=== PATIENT | male | born 2000 | race Caucasian/White ===

== ENCOUNTER 2024-02-11 04:39 | Emergency (ER) | payer SELFPAY ==
[2024-02-11] VITALS (32 sets, daily range): BP systolic 114–129; BP diastolic 69–85; PULSE 75–99; RESP 13–24; TEMP 36.9; O2SAT 77–100; BMI 23.6
[2024-02-11 05:30] LABS: Basophils % 0.3 %; Eosinophils % 0.2 %; Hematocrit 47.4 % (37-53); Lymphocytes # 2.3 10^3/uL (0.8-4.8); Lymphocytes % 14.4 %; Mean Corpuscular HGB Conc 33.1 g/dL (30-55); Mean Corpuscular Hemoglobin 29.8 pg (27-33); Mean Corpuscular Volume 89.9 fl (82-101); Mean Platelet Volume 9.9 fL (7.4-10.4); Monocytes # 1.7 10^3/uL (0.2-0.9); Monocytes % 10.8 %; Neutrophils # 11.72 10^3/uL (1.8-7.7); Nucleated Red Blood Cells % 0 %; Platelet Count 302 10^3/cmm (157-399); Red Blood Count 5.27 10^6/uL (3.85-5.65); Red Cell Distribution Width 12.7 % (12.1-15.1); White Blood Count 15.81 10^3/uL (3.29-11.43)
--- NOTE | 2024-02-11 05:32 | ED_ITS ---
HPI - Abdominal Pain 2 General: Chief Complaint: Abdominal Pain Stated Complaint: ABD Pain Time Seen by Provider: 02/11/24 05:21 History of Present Illness: 23-year-[facility] complaint of suprapubic pain began yesterday. Denies any dysuria urgency or frequency no previous history of abdominal surgeries. Symptoms began last night. Low-grade fever no vomiting no hematochezia or melena. Patient has had some loose stools with intermittent nausea as well. Associated Symptoms: Denies chills, dysuria and fever(s) Related Data Previous Rx's Medication Instructions Recorded ciprofloxacin HCl 500 mg tablet 500 mg PO BID #14 tabs 02/11/24 (Cipro) hydrocodone 5 mg-acetaminophen 325 1 tab PO Q6H PRN pain #10 tabs 02/11/24 mg tablet metronidazole 500 mg tablet 500 mg PO BID 7 days #14 tabs 02/11/24 promethazine 25 mg tablet 25 mg PO Q6H PRN nausea and 02/11/24 vomiting #20 tabs Allergies Allergy/AdvReac Type Severity Reaction Status Date / Time No Known Allergies Allergy Verified 02/11/24 04:55 Review of Systems 2 Const: Denies: fever(s) or chills Card: Denies: chest pain Resp: Denies: dyspnea GI: Denies: abdominal pain : Denies: dysuria, urinary frequency or urinary urgency Musc: Denies: neck pain or back pain Skin/Breast: Denies: rash Physical Exam 2 Const: COMMON NORMALS: no acute distress GENERAL APPEARANCE: cooperative and comfortable ORIENTATION/CONSCIOUSNESS: Yes awake, Yes oriented to person, Yes oriented to place and Yes oriented to time HENMT: COMMON NORMALS: normocephalic, atraumatic and hearing grossly normal bilaterally HEAD & SCALP: normocephalic and atraumatic Resp: COMMON NORMALS: normal respiratory effort, No retractions, No use of accessory muscles and clear to auscultation bilaterally AUSCULTATION: clear to auscultation bilaterally Cardio: COMMON NORMALS: regular rate, regular rhythm and No murmurs present (Cardio) RATE: regular rate RHYTHM: regular rhythm GI: COMMON NORMALS: No hepatosplenomegaly present AUSCULTATION: Yes normoactive bowel sounds PALPATION: Yes Tenderness to palpation present (GI) (Mild suprapubic tenderness at the midline), No Guarding due to palpation present (GI) and Yes No hepatosplenomegaly present Extremity: COMMON NORMALS: normal to inspection, capillary refill normal, no clubbing, cyanosis or edema, no calf tenderness and no pedal edema Neuro: SENSORIUM/ORIENTATION: Yes oriented to person, Yes oriented to place and Yes oriented to time Skin: COMMON NORMALS: no rashes or lesions noted GENERAL SKIN EXAM: no rashes or lesions noted Course 2 Vital Signs: Vital signs: Vital Signs Temperature 98.5 F 02/11/24 04:52 Pulse Rate 87 02/11/24 06:45 Respiratory Rate 13 02/11/24 06:45 Blood Pressure 118/78 02/11/24 06:45 Pulse Oximetry 100 02/11/24 06:40 Oxygen Delivery Me thod Room Air 02/11/24 04:52 MDM - Abdominal Pain Medical Decision Making CT shows normal appendix but there is a area of inflammation in the sigmoid associated with acute diverticulitis. Will treat for diverticulitis his appendix appeared normal. Started on Cipro and Flagyl discharged home with promethazine and hydrocodone to use as needed for pain follow-up with his primary care doctor to further evaluate if not improving follow-up within a week otherwise should follow-up in about 3 weeks and at some point given his age and the findings on the CT today should consider colonoscopy. Differential Diagnosis Likely abdominal pain, acute appendicitis, calculus of kidney, constipation, diverticulitis, pancreatitis and small bowel obstruction Medical Records I reviewed the patient's medical records. Lab Data I reviewed the patient's lab results. 02/11/24 05:25 02/11/24 05:25 Labs/Radiology: Radiology Impressions Abdomen/Pelvis CT 02/11/24 05:38 IMPRESSION: 1. Findings likely representing diverticulitis involving the mid sigmoid colon, see above details. 2. Very small amount of peritoneal fluid in the posterior lower pelvis. 3. No free air or significant bowel distention. 4. Possible thickened mucosa/wall in the distal stomach, see above discussion. 5. Normal appendix. 6. Possible mild urinary bladder wall thickening, see above. 7. Other findings discussed above. Laboratory Results WBC 15.81 10^3/uL (3.29-11.43) H 02/11/24 05:25 RBC 5.27 10^6/uL (3.85-5.65) 02/11/24 05:25 Hgb 15.70 g/dL (11.27-16.99) 02/11/24 05:25 Hct 47.4 % (37-53) 02/11/24 05:25 MCV 89.9 fl (82-101) 02/11/24 05:25 MCH 29.8 pg (27-33) 02/11/24 05:25 MCHC 33.1 g/dL (30-55) 02/11/24 05:25 RDW 12.7 % (12.1-15.1) 02/11/24 05:25 Plt Count 302 10^3/cmm (157-399) 02/11/24 05:25 MPV 9.9 fL (7.4-10.4) 02/11/24 05:25 Neut % (Auto) 74.0 % 02/11/24 05:25 Lymph % (Auto) 14.4 % 02/11/24 05:25 Mobile % (Auto) 10.8 % 02/11/24 05:25 Eos % (Auto) 0.2 % 02/11/24 05:25 Baso % (Auto) 0.3 % 02/11/24 05:25 Neut # (Auto) 11.72 10^3/uL (1.8-7.7) H 02/11/24 05:25 Lymph # (Auto) 2.3 10^3/uL (0.8-4.8) 02/11/24 05:25 Mobile # (Auto) 1.7 10^3/uL (0.2-0.9) H 02/11/24 05:25 Eos # (Auto) 0.0 10^3/uL (0.0-0.8) 02/11/24 05:25 Baso # (Auto) 0.0 10^3/uL (0.0-0.1) 02/11/24 05:25 Nucleated RBC % (auto) 0 % 02/11/24 05:25 Nucleated RBCs # 0.0 /100WBC 02/11/24 05:25 Sodium 136 mmol/L (136-145) 02/11/24 05:25 Potassium 4.0 mmol/L (3.5-5.1) 02/11/24 05:25 Chloride 101 mmol/L (98-107) 02/11/24 05:25 Carbon Dioxide 26 mmol/L (22-29) 02/11/24 05:25 Anion Gap 13.0 (5-19) 02/11/24 05:25 BUN 10 mg/dL (6-20) 02/11/24 05:25 Creatinine 1.0 mg/dL (0.7-1.2) 02/11/24 05:25 GFR Calculation 92.6 mL/min (90-130) 02/11/24 05:25 Glucose 99 mg/dL (65-115) 02/11/24 05:25 Calculated Osmolality 281 mOsm/kg (285-295) L 02/11/24 05:25 Calcium 9.2 mg/dL (8.5-10.5) 02/11/24 05:25 Total Bilirubin 0.9 mg/dL (0.15-1.2) 02/11/24 05:25 AST 14 U/L (0-40) 02/11/24 05:25 ALT 13 U/L (0-41) 02/11/24 05:25 Alkaline Phosphatase 76 U/L (40-130) 02/11/24 05:25 C-Reactive Protein 71.3 mg/L (0.0-4.9) H 02/11/24 05:25 Total Protein 7.3 g/dL (6.6-8.7) 02/11/24 05:25 Albumin 4.4 g/dL (3.5-5.2) 02/11/24 05:25 Globulin 2.9 g/dL (1.3-4.6) 02/11/24 05:25 Lipase 16 U/L (13-60) 02/11/24 05:25 Urine Color Yellow (Yellow) 02/11/24 05:50 Urine Appearance Clear (CLEAR) 02/11/24 05:50 Urine pH 5.5 (5-7) 02/11/24 05:50 Ur Specific [place] 1.027 (1.005-1.030) 02/11/24 05:50 Urine Protein Negative (Negative) 02/11/24 05:50 Urine Glucose (UA) Negative (Normal) 02/11/24 05:50 Urine Ketones 1+ (Negative) H 02/11/24 05:50 Urine Blood Negative (Negative) 02/11/24 05:50 Urine Nitrate Negative (Negative) 02/11/24 05:50 Urine Bilirubin Negative (Negative) 02/11/24 05:50 Urine Urobilinogen 1.0 mg/dL (Negative) 02/11/24 05:50 Ur Leukocyte Esterase Negative (Negative) 02/11/24 05:50 Urine RBC 0-2 /hpf (0-2) 02/11/24 05:50 Urine WBC 0-5 /hpf (0-5) 02/11/24 05:50 Ur Squamous Epith Cells 0-5 /hpf (0-5) 02/11/24 05:50 Amorphous Sediment Not Reportable 02/11/24 05:50 Urine Bacteria None seen /hpf (NONE) 02/11/24 05:50 Hyaline Casts 2.46 /lpf 02/11/24 05:50 All radiology interpretation(s) finalized by discharge Discharge Plan Discharge Patient Disposition: Home Clinical Impression: Diverticulitis Condition: Stable Prescriptions: New hydrocodone-acetaminophen 5-325 mg tablet 1 tab PO Q6H PRN (Reason: pain) Qty: 10 0RF promethazine 25 mg tablet 25 mg PO Q6H PRN (Reason: nausea and vomiting) Qty: 20 0RF Cipro 500 mg tablet 500 mg PO BID Qty: 14 0RF metronidazole 500 mg tablet 500 mg PO BID 7 Days Qty: 14 0RF Discharge Orders: Discharge ED (Routine); Ordered 02/11/24 Ordered By: Korey Oh Patient Instructions: Diverticulitis (ED), Opioid Safety, Pain Management Activity Restrictions/Additional Instructions: Thank you for choosing [facility] for your healthcare needs today. It is very important that you follow up as instructed or that you return to the Emergency Department should you have concerns or if your condition changes or worsens in any way. You were seen today for abdominal pain. CT showed diverticulitis she did have a mildly elevated white count your appendix appeared normal. Recommend that you start on ciprofloxacin 1 pill twice a day and metronidazole 1 pill twice a day both for 7 days to treat the diverticulitis. Additionally you are given medicines for pain and nausea to use as needed. Also recommend clear liquid diet for the next 24 to 48 hours and advance as tolerated Coding Level of Care Code ED Clip Bolter And Wrapper for Suzy Kumar
--- NOTE | 2024-02-11 05:38 | CTR_ITS ---
PROCEDURE INFORMATION: Exam: CT Abdomen And Pelvis With Contrast Exam date and time: 02/11/2024 6:10 AM Age: 23 years old Clinical indication: Abdominal pain; Localized; Lower; Additional info: Abd pain TECHNIQUE: Imaging protocol: Computed tomography of the abdomen and pelvis with contrast. Radiation optimization: All CT scans at this facility use at least one of these dose optimization techniques: automated exposure control; mA and/or kV adjustment per patient size (includes targeted exams where dose is matched to clinical indication); or iterative reconstruction. Contrast material: [id number]; Contrast volume: 100 ml; Contrast route: INTRAVENOUS (IV); COMPARISON: No relevant prior studies available. RADIATION DOSE METRICS: Total DLP (mGy-cm): 388 FINDINGS: Lungs: The lung bases are clear. Liver: Unremarkable. Gallbladder and biliary ducts: No visible gallstones by CT. No biliary tree dilation. Pancreas: Unremarkable. Spleen: Unremarkable. Adrenal glands: Unremarkable. Kidneys and ureters: No hydronephrosis of either kidney. No visible ureteral calculus. No perinephric fluid. The kidneys enhance homogeneously. Stomach and bowel: No significant bowel distention. There are mild inflammatory changes adjacent to the mid sigmoid colon. There appears to be an inflamed diverticula in this region, so the findings are probably most compatible with the diverticulitis. Some form of focal colitis is probably less likely, not excluded. There is moderate associated mucosal/wall thickening. Minimal pericolonic fluid. No definite pericolonic abscess. Other much less likely etiologies that could present with a similar appearance would include bowel ischemia, or neoplasm. Appropriate followup recommended. Possibility of somewhat thickened mucosa/wall in the distal antrum of the stomach. This is a nonspecific appearance, and could well be transient on CT, but could also represent evidence for gastritis or peptic ulcer disease. Please correlate clinically. Appendix: The appendix is visualized and appears normal. Intraperitoneal space: Very small amount of peritoneal fluid in the posterior lower pelvis. No free intraperitoneal air, or generalized ascites. Vasculature: No evidence for abdominal aortic aneurysm. Lymph nodes: No retroperitoneal adenopathy. Urinary bladder: Possibly some mild diffuse urinary bladder wall thickening. However evaluation is limited, as the bladder is almost empty. While nonspecific, this could indicate evidence for cystitis. Please correlate clinically. No visible calculus in the bladder. Reproductive: Essentially unremarkable for age. Bones/joints: No significant acute finding. Soft tissues: No significant acute finding. CT/CT abdomen pelvis w con* [id number] IMPRESSION: 1. Findings likely representing diverticulitis involving the mid sigmoid colon, see above details. 2. Very small amount of peritoneal fluid in the posterior lower pelvis. 3. No free air or significant bowel distention. 4. Possible thickened mucosa/wall in the distal stomach, see above discussion. 5. Normal appendix. 6. Possible mild urinary bladder wall thickening, see above. 7. Other findings discussed above.
[2024-02-11 05:57] LABS: Alanine Aminotransferase 13 U/L (0-41); Albumin Level 4.4 g/dL (3.5-5.2); Alkaline Phosphatase 76 U/L (40-130); Aspartate Amino Transferase 14 U/L (0-40); Blood Urea Nitrogen 10 mg/dL (6-20); C Reactive Protein 71.3 mg/L (0.0-4.9); Calcium 9.2 mg/dL (8.5-10.5); Carbon Dioxide 26 mmol/L (22-29); Chloride 101 mmol/L (98-107); Creatinine Clr Calc Pharmacy 116.1063; Globulin 2.9 g/dL (1.3-4.6); Glomerular Filtration Rate 92.6 mL/min (90-130); Glucose 99 mg/dL (65-115); Lipase 16 U/L (13-60); Osmolality Calculated 281 mOsm/kg (285-295); Sodium 136 mmol/L (136-145); Total Bilirubin 0.9 mg/dL (0.15-1.2); Total Protein 7.3 g/dL (6.6-8.7)
[2024-02-11 06:09] LABS: Bilirubin Urine Negative (Negative); Blood Urine Negative (Negative); Glucose Urine UA Negative (Normal); Ketones Urine 1+ (Negative); Leukocyte Esterase Urine Negative (Negative); Nitrate Urine Negative (Negative); Protein Urine Negative (Negative); Specific Gravity, Urine 1.027 (1.005-1.030); Urine Appearance Clear (CLEAR); Urine Color Yellow (Yellow); pH Urine 5.5 (5-7)
[2024-02-11 06:14] LABS: Add Urine Microscopic? YES; Bacteria Urine None Seen /hpf; Hyaline Casts Urine 2.46 /lpf; RBC Urine 0-2 /hpf (0-2); Squamous Epithelial Cell Urine 0-5 /hpf (0-5); WBC Urine 0-5 /hpf (0-5)
[2024-02-11] MEDS: iohexol 350 mg/mL 500 mL Btl (per mL) IV (06:14)
[2024-02-11] MEDS: sodium chloride 0.9% 1,000 ML 999 ML IV (07:10)
[2024-02-12 12:29] LABS: Chlamydia Trachomatis RNA TMA NOT DETECTED (NOT DETECTED); Neisseria Gonorrhoeae RNA, TMA NOT DETECTED (NOT DETECTED)
== END 2024-02-11 08:22 | disposition home or self-care (01) ==
PROVIDERS: Emergency Medicine; Emergency Provider Family Medicine
DX: K57.32 Diverticulitis of large intestine without perforation or abscess without bleeding (principal)
CPT/HCPCS: 36415; 74177; 80053; 81001; 83690; 85025; 86140; 87491; 87591; 99285; J7030